=== PATIENT | male | born 1960 | race Caucasian/White ===

== ENCOUNTER 2016-08-15 09:07 | Emergency (ER) | payer OTHER ==
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
[2016-08-15 13:17] VITALS: BP 130/78
[2016-08-15] MEDS ORDERED: TORADOL IM ONE (14:47)
--- NOTE | 2016-08-15 15:44 | XRay Report ---
ROUTINE CHEST, TWO VIEWS: PA and lateral views demonstrate the heart and mediastinal contour to be of normal size and shape. The lungs are clear and fully expanded and the soft tissues and bony structures are normal. IMPRESSION: Normal study.
== END 2016-08-15 15:47 | disposition home or self-care (01) ==
LOC: ED 09:07
DX: R07.89 Other chest pain (principal); V49.9XXA Car occupant (driver) (passenger) injured in unspecified traffic accident, initial encounter; W22.10XA Striking against or struck by unspecified automobile airbag, initial encounter; Y93.89 Activity, other specified; Y99.8 Other external cause status; Y92.89 Other specified places as the place of occurrence of the external cause
CPT/HCPCS: 36415; 71020; 84484; 93005; 93010; 96372; 99284; J1885